=== PATIENT | male | born 1965 | race Caucasian/White ===

== ENCOUNTER 2017-11-30 05:41 | Outpatient (CLI) | payer OTHER ==
[~2017-11-30] VITALS: Ht 182.9 cm; Wt 81.6 kg
[2017-11-30] MEDS ORDERED: LISI-552 PO (12:06)
[2017-11-30] MEDS ORDERED: METO-387 PO (12:06)
[2017-11-30] MEDS ORDERED: AMLO5TAB2 PO (12:06)
[2017-11-30] MEDS ORDERED: ASPI-586 PO (12:06)
[2017-11-30] MEDS ORDERED: AMLO10TA2 PO (13:00)
[2017-11-30] MEDS ORDERED: METO100T6 PO (13:00)
[2017-11-30] MEDS ORDERED: LISI40TA PO (13:00)
== END 2017-11-30 12:10 ==
LOC: PREOP 05:41
PROVIDERS: ATTEND Surgery
DX: Z01.818 Encounter for other preprocedural examination (principal); Z12.11 Encounter for screening for malignant neoplasm of colon

== ENCOUNTER → 2023-10-12 | Outpatient (CLI) | payer BC ==
[~2023-10-12] MED LIST: AMLO-250 PO; AMLO-251 PO; ASPI-586 PO; LISI20TA26 PO; LISI40TA9 PO; METO100T6 PO; MTP25TSR PO
--- NOTE | 2023-10-12 11:31 | Diagnostic Imaging Report ---
INDICATION: Recent right carotid endarterectomy. This study is performed for a 3 month followup. FINDINGS: Postop changes of right carotid endarterectomy are noted. The velocities in the right carotid system are as follow: Right CCA: Proximal 71 cm/s, mid 77 cm/s, and distal 71 cm/s. ICA: Proximal 47 cm/s, mid 95 cm/s, and distal 84 cm/s. ECA: 173 cm/s. Right vertebral artery shows antegrade flow. The ICA to CCA ratio is 1.2. IMPRESSION: Unremarkable right carotid ultrasound. Dictated by: Dictated on workstation # [id number]
== END ==
LOC: RAD 10:45
PROVIDERS: ATTEND Family Medicine
DX: Z86.73 Personal history of transient ischemic attack (TIA), and cerebral infarction without residual deficits (principal)
CPT/HCPCS: 93882